=== PATIENT | female | born 1985 | race Caucasian/White ===

== ENCOUNTER 2019-12-10 15:21 | Outpatient (CLI) | payer BC, SELFPAY ==
--- NOTE | ~2019-12-10 | MM_ITS ---
EXAMINATION: MM screening moraima BI w russel HISTORY: Baseline screening mammogram, history of breast cancer in her sister TECHNIQUE: Craniocaudal and mediolateral oblique 3-D tomosynthesis images were obtained and synthetic 2-D images were generated. CAD analysis was submitted and interpreted. COMPARISON: None, baseline BREAST PARENCHYMAL COMPOSITION: The breasts are heterogeneously dense, which may obscure small masses . FINDINGS: There is no evidence of suspicious mass, calcification, or architectural distortion to sugg est malignancy in either breast. IMPRESSION: 1. No mammographic evidence of malignancy. 2. Recommend routine screening mammography beginning at age 40. BI-RADS Category 1: Negative Reviewed, dictated and finalized at location A.
== END 2019-12-10 15:22 | disposition home or self-care (01) ==
PROVIDERS: PCP Internal Medicine; Visit Provider Obstetrics & Gynecology
DX: Z12.31 Encounter for screening mammogram for malignant neoplasm of breast (principal)
CPT/HCPCS: 77063; 77067

== ENCOUNTER 2023-03-18 09:19 | Outpatient (CLI) | payer OTHER, SELFPAY ==
[2023-03-18 09:54] LABS: Hematocrit 41.2 % (37.0-47.0); Hemoglobin 12.9 g/dL (12.0-15.0); Mean Corpuscular HGB Conc 31.3 g/dl (32-36); Mean Corpuscular Hemoglobin 28.5 pg (26-34); Mean Corpuscular Volume 91.2 fl (80-100); Platelet Count Result 243 k/mm3 (150-375); Red Blood Count 4.52 M/mm3 (4.2-5.4); Red Cell Distribution Width 12.5 % (11.5-14.5); White Blood Count 3.7 K/mm3 (4.5-10.0)
== END 2023-03-18 09:20 | disposition home or self-care (01) ==
LOC: ANHLAB 09:20
PROVIDERS: PCP Internal Medicine; Visit Provider Obstetrics & Gynecology
DX: N92.1 Excessive and frequent menstruation with irregular cycle (principal); Z01.818 Encounter for other preprocedural examination
CPT/HCPCS: 36415; 85027

== ENCOUNTER 2023-03-24 00:14 | Day surgery (SDC) | payer OTHER, SELFPAY ==
[2023-03-17 13:13] VITALS: BMI 22.8
--- NOTE | 2023-03-17 13:28 | PC.NURSE ---
Report to the Outpatient Waiting Room, entrance under the green pavilion located off [facility], at time _0600 on date _03/24/23. Planned Procedure Time: _0800. Time changes happen often and if your time is changed the preop area will call you the afternoon before. - You and your visitor will be asked to self-screen and do not enter if you have any COVID symptoms. - A mask is optional within the hospital at this time. Patients may have clear liquids (water, carbonated beverages, clear teas, apple juice) until 3 hours prior to surgery with a maximum of 20 ounces. - No food from midnight until time of surgery - Infants may have breast milk until 4 hours before surgery, formula 6 hours prior to surgery. - Children will be allowed to drink immediately following surgery. If applicable, please bring a bottle or sippy cup to assist with drinking. Juice, water, soda, and popsicles are readily available. For infants on formula, please bring formula the day of surgery. Pacifiers are allowed. Take the following medications with a SIP of water the morning of surgery: _n/a DO NOT STOP ANY OF YOUR OTHER PRESCRIPTION MEDICATIONS PRIOR TO SURGERY ?EXCEPT THE FOLLOWING Medications to discontinue per physician _n/a Date to take last dose Please no make-up, nail v[place] citizen, hairspray, perfume, deodorant, or body powder the day of surgery. No jewelry (including any body piercings) or valuables the day of surgery, leave them at home. Please take a shower or bath the night before, or the morning of, surgery with an antibacterial soap. Wear comfortable, loose fitting clothing. Children are encouraged to wear pajamas. - Jewelry must be removed prior to entering the operating room. Rings and piercings that are not removed may be cut off. - The hospital will not accept responsibility for valuables. - Please leave all valuables, including medications, at home the day of surgery. If you are going home after surgery, a licensed milk driver must drive you home. - NO public transportation without another adult if you receive anesthesia. - We recommend that an adult stay with you for 24 hours following discharge. - We also recommend that you do not drive, make important decision, drink alcoholic beverages, or take any drugs that were not prescribed by your health care provider for at least 24 hours after your discharge time. For Pediatric surgeries, we recommend two adults accompany the child home. Follow any additional instructions given to you from your surgeon. If you or anyone in your household have experienced Covid symptoms in the past week, please notify your surgeon or the nurse liaison at the phone number below for possible testing. Telephone instructions given to _Amanda Hogan_and asked if any additional questions and then verbalized understanding. Patient advised to call surgeon office or pre surgery nurse liaison [phone] if any additional questions.
--- NOTE | 2023-03-22 17:36 | PM.IMHP ---
H&P: HPI History of Present Illness Date/Time: 03/22/23 17:36 38-year-old 4 para 3013 presents for therapy regarding heavy vaginal bleeding. States her cycles are now lasting 7-10 days 3-5 days heavy with clotting cramping to the point where she often times is unable to perform daily activities. Ultrasound has been ordered which shows mildly enlarged uterus with a 2cm fibroid. Multiple options have been discussed and she desires to proceed with endometrial ablation. has had a vasectomy and she declines tubal ligation. Chief Complaint: Menometrorrhagia PMFSH Surgical History Surgical History H/O breast implant (02/27/21) breast implants and lift Family History Family History Father Diabetes mellitus Grandparent Diabetes mellitus maternal grandmother Sibling Breast cancer sister Social History Social History Smoking status: Never smoker Alcohol intake: never Substance use: never Substance use type: does not use Living arrangements: with family Additional living arrangements comments: Occupation/Education: occupation Additional occupation/education comments: teacher Gender identity (if verbalized by the patient): Female Sexual Orientation (if Verbalized by the Patient): Straight or Heterosexual Spiritual care concerns: No Meds Home Medications and Allergies Home Medications Medication Instructions Recorded Confirmed Type No Home Medications 01/17/23 03/17/23 History Allergies Allergy/AdvReac Type Severity Reaction Status Date / Time No Known Allergies Allergy Verified 01/17/23 15:34 Exam Const: General: cooperative, healthy appearing and comfortable Resp: Effort & Inspection: normal respiratory effort Auscultation: clear to auscultation bilaterally Cardio: Rate: regular rate Rhythm: regular rhythm GI: Inspection: normal to inspection Auscultation: normal bowel sounds : External Female Exam: normal external appearance Speculum Exam - Vagina: normal appearance of the vagina Speculum Exam - Cervix: normal appearance of the cervix Bimanual exam- vagina & uterus: normal bimanual exam Bimanual Exam- Adnexa, other: normal adnexae Assessment and Plan Assessment and plan (1) Menometrorrhagia: Code(s): N92.1 - Excessive and frequent menstruation with irregular cycle Status: Acute Plan 1. Hysteroscopy with uterine curettings 2. Endometrial ablation
--- NOTE | 2023-03-24 06:58 | WPDHPUPDATE1 ---
History and Physical Update Update Date/Time: 03/24/23 06:58 History and Physical has been reviewed, including an updated exam of the patient. There are NO changes in the patient's condition. Risks, benefits, and alternatives have been discussed and questions answered. Patient agrees to proceed with procedure.
[2023-03-24] MEDS: LACTATED RINGERS 1,000 ML 30 ML IV CONT (07:15)
[2023-03-24] MEDS: ACETAMINOPHEN 500 MG TABLET 1000 MG PO (07:15)
[2023-03-24 07:20] VITALS: BP 99/68; PULSE 67; RESP 14; TEMP 36.9; O2SAT 100
--- NOTE | 2023-03-24 07:43 | P.PNAN_ITS ---
Anes - Initial Pre Proc Eval Procedure: Operation Date: 03/24/23 08:30 Proposed Procedures p Hysteroscopy, Dilation and Curettage, Nuria Endometrial Ablation - Yash Aragon MD Date/Time: 03/24/23 07:43 Surgeon: Yash Aragon MD Pre Op Diagnosis: menometrorrhagia Patient Data Age: 38 Gender: F Height: 1.75 m Weight: 71.05 kg Last Vital Signs Temp 36.9 C 03/24/23 07:20 Pulse 67 03/24/23 07:20 Resp 14 03/24/23 07:20 BP 99/68 L 03/24/23 07:20 Pulse Ox 100 03/24/23 07:20 O2 Del Method Room Air 03/24/23 07:20 Allergies Allergy/AdvReac Type Severity Reaction Status Date / Time No Known Allergies Allergy Verified 03/24/23 07:25 Home Medications Medication Instructions Recorded Confirmed Type No Home Medications 01/17/23 03/17/23 History Patient hx anesthesia problems: none Family hx anesthesia problems: none Results Review: All pre-operative results and documents have been reviewed as part of the pre- operative evaluation. [facility] Surgical History Surgical History H/O breast implant (02/27/21) breast implants and lift Family History Family History Father Diabetes mellitus Grandparent Diabetes mellitus maternal grandmother Sibling Breast cancer sister Social History Social History Smoking status: Never smoker Alcohol intake: never Substance use: never Substance use type: does not use Living arrangements: with family Additional living arrangements comments: Occupation/Education: occupation Additional occupation/education comments: teacher Gender identity (if verbalized by the patient): Female Sexual Orientation (if Verbalized by the Patient): Straight or Heterosexual Spiritual care concerns: No Anes - Eval Final PreProcedure Day of Procedure 03/24/23 07:43 Patient weight: normal Heart: regular rate and rhythm Lungs: clear to auscultation Airway: Mallampati scale class II Neurological: alert and oriented Last oral intake: >/= 8 hours ASA classification: II Emergent: no Anesthetic plan: proceed Anesthesia type and monitoring: general GIVS and standard monitoring Results Review: All pre-operative results and documents have been reviewed as part of the pre- operative evaluation. Informed Consent: The patient's anesthetic plan and its attendant risks and benefits were discussed with the patient/family/POA. Questions were solicited and answers provided to the satisfaction of the patient/family/POA.
[2023-03-24] MEDS: ceFAZolin 2 GM/D5W 50 ML 2 GM/50 ML BAG IVPB (08:20)
[2023-03-24 08:49] VITALS: BP 116/72; PULSE 67; RESP 14; O2SAT 100
--- NOTE | 2023-03-24 08:56 | W.PM.PROC2 ---
Procedure Note - Detailed Date of Procedure 03/24/23 Pre-op Diagnosis menometrorrhagia Post-op Diagnosis Same Procedure Performed 1. Hysteroscopy with uterine curettings 2. Endometrial ablation Surgeon Yash Aragon MD Anesthesia MAC Findings Endometrial cavity without significant abnormality. At end of procedure good destruction was noted. Description of Procedure Patient was prepped and draped usual manner for this procedure. Cervix was dilated to allow the hysteroscope to be placed which revealed no endometrial abnormalities. Curettings were obtained with moderate tissue. Endometrial ablation instrument was placed in the cavity, cavity assessment was performed, and instrument was activated. At the end of the cycle hysteroscopic exam no abnormality with good destruction noted throughout. Patient was sent to recovery room in stable condition. Estimated Blood Loss 10 Drains No Packing No Pathology Yes Complications No immediate complications Condition Stable Disposition PACU [facility] Billing Surgery - Charge Forward: Surgery Billing
[2023-03-24 09:15] VITALS: BP 115/81; PULSE 53
[2023-03-24 09:45] VITALS: BP 117/84; PULSE 58
== END 2023-03-24 10:05 | disposition home or self-care (01) ==
PROVIDERS: PCP Internal Medicine; Visit Provider Obstetrics & Gynecology
PROC: 0U5B8ZZ Destruction of Endometrium, Via Natural or Artificial Opening Endoscopic (ICD-10-PCS; CPT 58563; principal; 2023-03-24 08:30)
DX: N92.1 Excessive and frequent menstruation with irregular cycle (principal); D25.9 Leiomyoma of uterus, unspecified
CPT/HCPCS: 58563; 36415; 85027; 88305; A9270; J0690; J1100; J2250; J2405; J2704; J3010; J7120

== ENCOUNTER 2025-04-01 15:30 | Outpatient (CLI) | payer OTHER, SELFPAY ==
--- OUTSIDE RECORDS SUMMARY | 2025-04-01 15:35 | XMS_ITS | Referral Summary ---
Author Organization [facility] Address [address] [place] [address] Care Team Providers Care Book Coverer Name Role Phone Fior Vivas MD Primary Care Provider + [phone] Yash Madrigal MD Unavailable [phone] Penny Henriquez MD Unavailable [phone] Allergies No known active allergies Medications acetaminophen (Tylenol Extra Strength) 500 mg tabletIndicatio ns:Encounter for cosmetic surgery Take 1 tablet (500 mg total) by mouth every 6 (six) hours as needed for pain Do not take Tylenol while taking [place] 30 tablet 12/12/2019 Active Active Problems Problem Noted Date Diagnosed Date Nasal defect 12/14/2019 Overview (12/14/2019): Added automatically from request for surgery [id number] Breast ptosis 12/14/2019 Overview (12/14/2019): Added automatically from request for surgery [id number] Social History Tobacco Use Types Packs/Day Years Used Date Smoking Tobacco: Never Smokeless Tobacco: Never Alcohol Use Standard Drinks/Week Comments Never 0 (1 standard drink = 0.6 oz pur e alcohol) AUDIT-C Answer Date Recorded Q1: How often do you have a drink containing alc ohol? Monthly or less 02/17/2021 Q2: How many drinks containi ng alcohol do you have on a typical day when you are drinking? 1 or 2 02/17/2021 Q3: How often do you have si x or more drinks on one occasion? 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 Gender Identity Not on file Sexual Orientation Not on file Last Filed Vital Signs Vital Sign Reading Time Taken Comments Blood Pressure 110/70 02/25/2021 10:55 AM CDT Pulse 64 02/25/2021 10:55 AM CDT Temperature 36.4 C (97.5 F) 02/25/2021 10:45 AM CDT Respiratory Rate 22 02/25/2021 10:55 AM CDT Oxygen Saturation 99% 02/25/2021 10:55 AM CDT Inhaled Oxygen Concentration - - Weight 68.6 kg (151 lb 3.2 oz) 02/25/2021 6:25 A M CDT Height 172.7 cm (5' 8) 02/25/2021 6:25 AM CDT Body Mass Index 22.99 02/25/2021 6:25 AM CDT Plan of Treatment Not on file Medical Devices Implanted Type Area Ladle Liner Helper Device Identifier Shelf Expiration Date Model / Serial / Lot [employer] Ssm-330 Natrelle Inspira Smooth Gel Moderate Profile Implant 330cc Breast - [id number] - [id number] Implanted:Qty : 1 on 02/25/2021 by Penny Henriquez MD at [facility] Left: Breast [employer] [id number] 11/21/2025 SSM-330 / [id number]? [id number] / [id number] [employer] Ssm-330 Natrelle Inspira Smooth Gel Moderate Profile Implant 330cc Breast - [id number] - [id number] Implanted:Qty : 1 on 02/25/2021 by Penny Henriquez MD at [facility] Right: Breast [employer] [id number] 11/21/2025 SSM-330 / [id number]? [id number] / [id number] Insurance [place] Member Subscriber Plan / Payer ( fective 2020-Present) Name:Chriss Hoganli Relation to Subscriber:Self Name:Keeganangiefaiza Amanda Payer ID:[id number] (NAIC) Type: OTHER Address: [address] Care Teams Book Coverer Relationship Specialty Start Date End Date Fior Vivas MD [address] [place] [address] PCP - General Internal Medicine 08/21/19 Yash Madrigal MD [address] [place] [address] Consulting Physician Plastic Surgery 12/29/20 Penny Henriquez MD [address] [place] [address] Referring Physician Plastic Surgery 02/25/21
--- OUTSIDE RECORDS SUMMARY | 2025-04-01 15:35 | XMS_ITS | Clinical Summary ---
Author Organization [facility] Address [address] [place] [address] Care Team Providers Care Crop Or Livestock Tenant Farmer Name Role Phone Fior Vivas MD Primary Care Provider + [phone] Yash Madrigal MD Unavailable [phone] Penny Henriquez MD Unavailable Allergies No known active allergies Medications acetaminophen (Tylenol Extra Strength) 500 mg tabletIndicatio ns:Encounter for cosmetic surgery Take 1 tablet (500 mg total) by mouth every 6 (six) hours as needed for pain Do not take Tylenol while taking Center 30 tablet 12/12/2019 Active Active Problems Problem Noted Date Diagnosed Date Nasal defect 12/14/2019 Overview (12/14/2019): Added automatically from request for surgery [id number] Breast ptosis 12/14/2019 Overview (12/14/2019): Added automatically from request for surgery [id number] Surgical History Surgery Date Site/Laterality Comments RHINOPLASTY 12/30/2020 RHINOPLASTY Medical History Medical History Date Comments Motion sickness received scopola mine patch prior to rhinoplasty which helped prevent symptoms Family History Medical History Relation Name Comments Cancer Father Diabetes Father Lung cancer Father No Known Problems Mother Breast cancer Sister Anesthesia problems Neg Hx Relation Name Status Comments Father Mother Sister Social History Tobacco Use Types Packs/Day Years [...] on file 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 [id number] / [id number] [employer] Ssm-330 Natrelle Inspira Smooth Gel Moderate Profile Implant 330cc Breast - [id number] - [id number] Implanted:Qty : 1 on 02/25/2021 by Penny Henriquez MD at [facility] Right: Breast [employer] [id number] 11/21/2025 [facility]-330 / [id number]? [id number] / [id number] Insurance Care Teams Crop Or Livestock Tenant Farmer Relationship Specialty Start Date End Date Fior Vivas MD [address] [place] [address] PCP - General Internal Medicine 08/21/19 Yash Madrigal MD [address] [facility] [address] [place] [address] Consulting Physician Plastic Surgery 12/29/20 Penny Henriquez MD [address] [place] [address] Referring Physician Plastic Surgery 02/25/21
[2025-04-01 16:20] LABS: Alanine Aminotransferase 16 U/L (6-35); Albumin Level 4.3 g/dL (3.5-5.1); Alkaline Phosphatase 60 U/L (38-126); Anion Gap 2 mmol/L (4-12); Aspartate Amino Transferase 23 U/L (14-36); Bilirubin,Total 1.7 mg/dL (0.2-1.3); Blood Urea Nitrogen 24 mg/dL (7-17); Calcium 9.6 mg/dL (8.4-10.2); Carbon Dioxide 27 mmol/L (22-30); Chloride 109 mmol/L (98-107); Cholesterol 175 mg/dL (0-200); Estimated Glomerular Filt Rate > 60; Glucose 87 mg/dL (65-110); HDL Direct 60 mg/dL; LDL Cholesterol Calculated 94 mg/dL (<130); Osmolality Calculated 289 mOsm/kg (285-295); Potassium 4.1 mmol/L (3.4-5.0); Sodium 138 mmol/L (137-145); Total Protein 6.8 g/dL (6.3-8.2); Triglycerides 107 mg/dL (<150)
== END 2025-04-01 15:31 | disposition home or self-care (01) ==
PROVIDERS: PCP Family Medicine; Visit Provider Nurse Practitioner Family
DX: Z00.00 Encounter for general adult medical examination without abnormal findings (principal); Z13.6 Encounter for screening for cardiovascular disorders; L02.415 Cutaneous abscess of right lower limb
CPT/HCPCS: 36415; 80053; 80061; 87070; 87075; 87147; 87181; 87205